=== PATIENT | female | born 2000 | race American Indian/Alaskan Native ===

== ENCOUNTER 2020-10-09 05:11 | Inpatient (IN) | payer MEDICAID ==
[2020-10-09] MEDS ORDERED: ACETAMINOPHEN 325 MG TAB PO PRN (06:13)
[2020-10-09] MEDS ORDERED: LOPERAMIDE 2 MG CAP PO PRN (06:13)
[2020-10-09] MEDS ORDERED: OXYTOCIN 10 UNIT/1 ML INJ IM PRN (06:13)
[2020-10-09] MEDS ORDERED: MINERAL OIL 30 ML ORAL LIQD PO PRN (06:13)
[2020-10-09] MEDS ORDERED: ePHEDrine SULFATE 50 MG/1 ML INJ IV PRN ×2 (06:13→07:20)
[2020-10-09] MEDS ORDERED: AMPICILLIN/NS 2 GM/100 ML 2 GM/100 ML BAG IV ONE (06:13)
[2020-10-09] MEDS ORDERED: TERBUTALINE 1 MG/1 ML INJ SUB-Q PRN (06:13)
[2020-10-09] MEDS ORDERED: METHYLERGONOVINE MALEATE 0.2 MG/ML VIAL IM PRN (06:13)
[2020-10-09] MEDS ORDERED: CARBOPROST TROMETHAMINE 250 MCG/1 ML INJ IM PRN (06:13)
[2020-10-09] MEDS ORDERED: LIDOCAINE (2%) 20 MG/1 ML VIAL 20 ML MDV INFILTRATI ONE (06:13)
[2020-10-09] MEDS ORDERED: miSOPROStol 200 MCG TAB PR PRN (06:13)
[2020-10-09] MEDS ORDERED: LACTATED RINGERS 1,000 ML IV SCH (06:15)
--- NOTE | 2020-10-09 06:44 | History and Physical Report ---
History of Present Illness Date of examination: 10/09/20 (SROM in triage, active labor) Date of admission: 10/09/20 Chief complaint: I was having contractions back to back. History of present illness: Patient, @ 40.3 wks presented to triage with c/o contractions. While she was being admitted, her water broke. She was then checked by the triage nurse and was found to be 8/90/0. She has no medical or surgical history. Denies drug alcohol use. 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 Past History Past Medical History: no pertinent history Past Surgical History: no surgical history Family/Genetic History: none Social history: no significant social history - Obstetrical History Expected Date of Delivery: 10/06/20 Actual Gestation: 40 Week(s) 3 Day(s) : 1 Para: 0 Hx # Term Pregnancies: 0 Number of Pregnancies: 0 Spontaneous Abortions: 0 Induced : 0 Number of Living Children: 0 Medications and Allergies Allergies Allergy/AdvReac Type Severity Reaction Status Date / Time No Known Allergies Allergy Unverified 10/09/20 06:12 Home Medications Medication Instructions Recorded Confirmed Last Taken Type No Known Home Medications [No 10/09/20 10/09/20 Unknown History Reported Home Medications] Active Meds: Active Medications Acetaminophen (Acetaminophen 325 Mg Tab) 650 mg PO Q4H PRN PRN Reason: Pain, Mild (1-3) Carboprost Tromethamine (Carboprost Tromethamine 250 Mcg/1 Ml Inj) 250 mcg IM ONCE PRN PRN Reason: Uterine Bleeding Ephedrine Sulfate (Ephedrine Sulfate 50 Mg/1 Ml Inj) 10 mg IV Q2M PRN PRN Reason: Hypotension Oxytocin/Sodium Chloride (Pitocin/Ns 30 Unit/500ml) 30 units in 500 mls @ 2 mls/hr IV TITR ZAYNAB; Protocol Lactated Ringer's (Lactated Ringers) 1,000 mls @ 125 mls/hr IV DIRECT ZAYNAB Oxytocin/Sodium Chloride (Pitocin/Ns 30 Unit/500ml) 30 units in 500 mls @ 40 mls/hr IV TITR ZAYNAB; Protocol Ampicillin Sodium (Ampicillin/Ns 2 Gm/100 Ml) 2 gm in 100 mls @ 100 mls/hr IV ONCE ONE; Protocol Stop: 10/09/20 07:12 Lidocaine (Lidocaine (2%) 20 Mg/1 Ml Vial 20 Ml Mdv) 20 ml INFILTRATI ONCE ONE Stop: 10/09/20 06:14 Loperamide HCl (Loperamide 2 Mg Cap) 2 mg PO ONCE PRN PRN Reason: give with Hemabate Methylergonovine Maleate (Methylergonovine Maleate 0.2 Mg/Ml Vial) 0.2 mg IM ONCE PRN PRN Reason: Uterine Bleeding Mineral Oil (Mineral Oil 30 Ml Oral Liqd) 30 ml PO QHS PRN PRN Reason: Constipation Misoprostol (Misoprostol 200 Mcg Tab) 800 mcg RI ONCE PRN PRN Reason: Uterine Bleeding Oxytocin (Oxytocin 10 Unit/1 Ml Inj) 10 unit IM ONCE PRN PRN Reason: Uterine Bleeding Terbutaline Sulfate (Terbutaline 1 Mg/1 Ml Inj) 0.25 mg SUB-Q ONCE PRN PRN Reason: Hyperstimulation/Hypertonicity Review of Systems All systems: negative - Physical Exam Breasts: Positive: deferred Cardiovascular: Regular rate Lungs: Positive: Normal air movement Abdomen: Positive: normal appearance, soft Genitourinary (Female): Positive: normal external genitalia, normal perenium Vulva: both: normal Vagina: Positive: normal moisture Uterus: Positive: normal size (For abdomen. ), normal contour Extremities: Positive: normal - Obstetrical FHR: category 1 Uterine Contraction Monitor Mode: External Cervical Dilatation: 9 (Moderate amount of clear fluid on bed. ) Cervical Effacement Percentage: 90 station: 0 Uterine Contraction Pattern: Regular Uterine Tone Measurement Phase: Resting Uterine Contraction Intensity: Moderate Results Result Diagrams: 10/09/20 06:00 All other labs normal. GBS NEGATIVE O POSITIVE RPR NON REACTIVE HIV NEGATIVE RUBELLA IMMUNE HEP C NEGATIVE HEP B NEGATIVE Assessment and Plan A: 19 y.o. @ 40.3 wks, active labor, SROM. Cervical exam 90/0. - Patient Problems (1) Post-term , 40-42 weeks of gestation Current Visit: Yes Status: Acute Plan to address problem: Admit to labor and delivery. Initiate IV bolus for epidural placement. Draw admission labs. Anticipate .
[2020-10-09 06:55] LABS: Hematocrit 35.9 % (30.3-42.9); Hemoglobin 12.3 gm/dl (10.1-14.3); Mean Corpuscular HGB Conc 34 % (30-34); Mean Corpuscular Volume 82 fl (79-97); Platelet Count 199 K/mm3 (140-440); Red Blood Count 4.38 M/mm3 (3.65-5.03); Red Cell Distribution Width 13.8 % (13.2-15.2)
[2020-10-09] MEDS ORDERED: OXYTOCIN DRIP 30 UNITS/500 ML BAG IV SCH ×2 (07:00)
[2020-10-09] MEDS ORDERED: NALOXONE 2 MG/2 ML INJ IV PRN (07:20)
--- NOTE | 2020-10-09 07:20 | Anesthesia Consultation ---
Anesthesia Consult and Med Hx Date of service: 10/09/20 - Airway Anesthetic Teeth Evaluation: Good ROM Head & Neck: Adequate Mental/Hyoid Distance: Adequate Mallampati Class: Class II Intubation Access Assessment: Probably Good - Pulmonary Exam CTA: Yes - Cardiac Exam Cardiac Exam: RRR - Pre-Operative Health Status ASA Pre-Surgery Classification: ASA2 Proposed Anesthetic Plan: Epidural - Pulmonary Hx Asthma: No - Cardiovascular System Hx Hypertension: No - Other Systems Hx Alcohol Use: No
--- NOTE | 2020-10-09 07:43 | Progress Note ---
Labor Epidural - Labor Epidural Start Time: 07:28 Stop Time: 07:33 Performed by:: CONSTANTINO REVELES Procedure: Patient is requesting epidural for labor pain. H&P, and labs reviewed. Procedure explained, questions answered, consent obtained. Patient in sitting position with blood pressure cuff and pulse ox on and working. Timeout performed immediately before start of procedure. Sterile chlorahexadine 0.5% prep/drape. 5 mL 1% lidocaine skin wheal at L[3]-L[4]. 18-gauge [employer] epidural needle advanced to [id number] with saline at [7] cm. Epidural dexmedetomidine [30] mcg administered. Epidural catheter advanced to [12] cm, negative aspiration for blood and csf, negative test dose 3 ml 1.5% lidocaine with epinephrine. Sterile steri-strips and tegaderm applied, followed by tape reinforcement. Patient tolerated procedure well.
[2020-10-09] MEDS ORDERED: fentaNYL-BUPIV 2 MCG/ML-0.125% 200 MCG/100 ML BAG EPIDURAL SCH (08:00)
--- NOTE | 2020-10-09 11:31 | Procedure Note ---
OB Delivery Note - Delivery Date of Delivery: 10/09/20 (Baby boy) B Operator: CHRISTIANO RDZ Estimated blood loss: 100cc - Vaginal Delivery presentation: vertex Delivery position: OA (MORGAN) Intrapartum events: none Delivery induction: none Delivery augmentation: pitocin Delivery monitor: external FHT, external uterine Route of delivery: Delivery placenta: spontaneous Delivery cord: 3 umbilical vessels Episiotomy: none Delivery laceration: none Anesthesia: epidural Delivery comments: patient pushed head out and started screaming and closing legs, attempted several times to get patient to regroup and cooperate. after approx 30 seconds of head being delivered, CN Ivy assisted with suprapubic pressure to del anterior shoulder (left shoulder) baby placed skin to skin on mother's abdomen to dry and stimulate. 3 vessel cord clamped and cut after cessation of pulsation. Corb blood collected. Placenta del intact and complete. no lacerations to repair. All counts correct. EBL 100. - A at 1 minute: 7 at 5 minutes: 9 Gender: Male (7#5oz)
[2020-10-09] MEDS ORDERED: PROMETHAZINE 25 MG TAB PO PRN (14:24)
[2020-10-09] MEDS ORDERED: BENZOCAINE/MENTHOL 20/0.5% TOP SPRAY 56 GM TP PRN (14:24)
[2020-10-09] MEDS ORDERED: WITCH HAZEL/ GLYCERIN PAD TP PRN (14:24)
[2020-10-09] MEDS ORDERED: ONDANSETRON 4 MG/2 ML INJ IV PRN (14:24)
[2020-10-09] MEDS ORDERED: diphenhydrAMINE 25 MG CAP PO PRN (14:24)
[2020-10-09] MEDS ORDERED: MAGNESIUM HYDROXIDE (MOM) ORAL LIQD UDC PO PRN (14:24)
[2020-10-09] MEDS ORDERED: LANOLIN/ZINC/DIMETHICONE (LANSINOH) 7 GM TP PRN (14:24)
[2020-10-09] MEDS: IBUPROFEN 600 MG TAB PO SCH (18:39)
[2020-10-09] MEDS ORDERED: FERROUS SULFATE 325 MG TAB PO SCH (22:00)
[2020-10-09] MEDS ORDERED: DOCUSATE SODIUM 100 MG CAP PO SCH (22:00)
[2020-10-10 00:43] LABS: Hematocrit 35.4 % (30.3-42.9); Hemoglobin 11.8 gm/dl (10.1-14.3)
[2020-10-10] MEDS ORDERED: TETANUS,DIPH,PERTUSS(ACELL) VACCINE 0.5 ML SYRINGE IM ONE (06:00)
[2020-10-10] MEDS ORDERED: medroxyPROGESTERone ACETATE 150 MG/ML SYRINGE IM NR (06:43)
--- NOTE | 2020-10-10 06:50 | Discharge Summary ---
Providers - Providers Date of Admission: 10/09/20 10:50 Date of discharge: 10/10/20 (pt desires d/c) Attending physician: JAY KULKARNI 10/09/20 14:24 Consult to City Surveyor [CONS] Routine Reason For Exam: assistance with , SNS Primary care physician: JAY KULKARNI Hospitalization Reason for admission: active labor, IUP at term Delivery: Episiotomy: none Laceration: none Incision: normal Other procedures: none complications: none Discharge diagnosis: IUP at term delivered baby: male Hospital course: Uncomplicated vaginal delivery Pt awake caring for NB Breast feeding. No c/o voiced VSS FF below umb Lochia small perineum intact. H&H stable No s/sx of anemia Doing well s/p vag delivery P: d/c today with instructions RTO 1 wk for circ; 4 wk for PP care. DEPO for PP BC Condition at discharge: Good Disposition: DC-01 TO HOME OR SELFCARE - Discharge Diagnoses (1) (normal spontaneous vaginal delivery) Status: Acute Comment: RTO 4 weeks PP Care Plan - Discharge Medications Prescriptions: Lidocain2.5%/Prilocai2.5% [Emla] 5 gm TP PRN #1 tube - Provider Discharge Summary Activity: routine, no sex for 6 weeks, no heavy lifting 4 weeks, no strenuous exercise Diet: routine Instructions: routine Additional instructions: [] Smoking cessation referral if applicable(refer to patient education folder for contact #) [] Refer to [employer] Booklet Call your doctor immediately for: * Fever > 100.5 * Heavy vaginal bleeding ( >1 pad per hour) * Severe persistent headache * Shortness of breath * Reddened, hot, painful area to leg or breast * Drainage or odor from incision. * Keep incision clean and dry at all times and follow doctor's instructions regarding bathing/showering - Follow up plan Follow up: JAY KULKARNI MD [Primary Care Provider] - 7 Days (Congratulations! please call [phone] to schedule your visit in 4 weeks and your s on's circumcision in 1 week. Bring the EMLA cream with you to his visit. Do NOT use at home. Motrin/ibuprofen for pain/cramping. Call with concerns.)
[2020-10-10] MEDS ORDERED: PRENATAL VIT27-FE FUMARATE-FOLIC ACID VIT TAB PO SCH (10:00)
[2020-10-10] MEDS: IBUPROFEN 600 MG TAB PO SCH (14:47)
[2020-10-10 15:14] VITALS: BP 111/82
== END 2020-10-10 15:45 | disposition home or self-care (01) | DRG 775 ==
LOC: TRG 05:11 → LD 06:40 → TRG 10:59 → OB 13:40
PROVIDERS: ADMIT Obstetrics & Gynecology; ATTEND Obstetrics & Gynecology
PROC: 10E0XZZ Delivery of Products of Conception, External Approach (ICD-10-PCS; principal; 2020-10-09)
PROC: 3E0R3BZ Introduction of Anesthetic Agent into Spinal Canal, Percutaneous Approach (ICD-10-PCS; 2020-10-09)
PROC: 00HU33Z Insertion of Infusion Device into Spinal Canal, Percutaneous Approach (ICD-10-PCS; 2020-10-09)
PROC: 3E0234Z Introduction of Serum, Toxoid and Vaccine into Muscle, Percutaneous Approach (ICD-10-PCS; 2020-10-10)
DX: O48.0 Post-term pregnancy (principal); Z3A.40 40 weeks gestation of pregnancy; Z37.0 Single live birth; Z20.822 Contact with and (suspected) exposure to COVID-19; Z23 Encounter for immunization
CPT/HCPCS: 36415; 85014; 85018; 85027; 86592; 86850; 86900; 86901; 96360; G0378; A6250; J2590; U0003